=== PATIENT | female | born 1995 | race Caucasian/White ===

== ENCOUNTER → 2018-05-12 | Emergency (ER) | payer SELFPAY | END | disposition left against medical advice (07) | DX: Z53.21 Procedure and treatment not carried out due to patient leaving prior to being seen by health care provider (principal) ==

== ENCOUNTER 2018-05-22 16:34 | Emergency (ER) | payer OTHER ==
--- NOTE | 2018-05-22 16:55 | EDPHY ---
H & P Stated Complaint: chest tight / SOB---snorted cocaine last night Source: Patient Exam Limitations: No limitations - Personal History LMP (Females 10-55): 1-7 Days Ago - Medical/Surgical History Hx Asthma: No Hx Chronic Respiratory Disease: No Hx Diabetes: No Hx Cardiac Disease: No Hx Renal Disease: No Hx Cirrhosis: No Hx Alcoholism: No Hx HIV/AIDS: No Hx Splenectomy or Spleen Trauma: No Other PMH: denies - Social History Smoking Status: Never smoked Time Seen by Provider: 05/22/18 16:54 HPI/ROS: HPI: This is a 22-year-old female who presents with Chief Complaint: chest tight / SOB---snorted cocaine last night Location: Anterior chest Quality: Tightness and shortness of breath Duration: Since around 11:30 a.m. Approximately 6 hr prior to arrival Signs and Symptoms: + shortness of breath at rest, + shortness of breath on exertion, no cough, + chest pain, no palpitations, no lower extremity edema, no wheezing, no orthopnea, no paroxysmal nocturnal dyspnea, no fever, no injury/ trauma, no hemoptysis, no carpal pedal spasms Timing: Acute onset, waxes and wane Severity: Moderate Context: Patient works locally, presents with complaints of waking up this morning around 11:30 a.m. With complaints of anterior chest tightness that is nonradiating in nature accompanied by shortness of breath at rest and on exertion. Nothing makes the tightness worse or better. Patient reports that from 01/06 last night until around 7:30 a.m. This morning she was drinking alcohol excessively and snorted approximately 5-6 lines of cocaine. She reports that she does not regularly snort cocaine or use cocaine. She reports that she drank minimal fluids yesterday other than alcohol. She denies any palpitations, heart racing, lower extremity edema, wheezing, fever, upper respiratory symptoms. She has no history of lung disease. Does not have primary care provider. Last menstrual period was approximately 4 days ago and only lasted 3 days. Modifying Factors: None Comment: ROS: A comprehensive 10 system review of systems is otherwise negative aside from elements mentioned in the history of present illness. MEDICAL/SURGICAL/SOCIAL HISTORY: Medical history: Generally healthy. Does not take any regular medications. Surgical history: Denies Social history: Is self-employed and works as a nanny. Alcohol, cocaine user. CONSTITUTIONAL: Well-developed, well-nourished, nontoxic-appearing young adult white female, awake and alert, no obvious distress HEENT: Atraumatic and normocephalic, PERRL, EOMI. Nares patent; no rhinorrhea; no nasal mucosal edema. Tympanic membranes clear. Oropharynx clear, no exudate and moist pink mucosa. Airway patent. No lymphadenopathy. No meningismus. Cardiovascular: Normal S1/S2, tachycardia, regular rhythm, without murmur rub or gallop. PULMONARY/CHEST: Symmetrical and nontender. Clear to auscultation bilaterally. Good air movement. No accessory muscle usage. ABDOMEN: Soft, nondistended, nontender, no rebound, no guarding, no peritoneal signs, no masses or organomegaly. No CVAT. EXTREMITIES: 2/2 pulses, strength 5/5, no deformities, no clubbing, no cyanosis or edema. NEUROLOGICAL: no focal neuro deficits. GCS 15. SKIN: Warm and dry, no erythema. no rash. Good capillary refill. (Mayda Whitt) Constitutional: Initial Vital Signs Temperature (C) 36.4 C 05/22/18 16:38 Heart Rate 122 H 05/22/18 16:38 Respiratory Rate 16 05/22/18 16:38 Blood Pressure 124/95 H 05/22/18 16:38 O2 Sat (%) 97 05/22/18 16:38 O2 Delivery Mode Room Air Allergies/Adverse Reactions: No Known Allergies Allergy (Unverified 05/22/18 16:36) Home Medications: Medication Instructions Recorded Zoloft 25mg (*) 05/22/18 Medical Decision Making - Diagnostics EKG Interpretation: 12 lead EKG: Indication: Chest pain Rhythm: Sinus tachycardia with a rate of 106 beats per minute [place]: Normal Intervals: Normal QRS: RBBB ST segments: Normal INTERPRETATION: Early repolarization, no acute ischemic changes The 12 lead EKG was interpreted by myself and with attending (Mayda Whitt) ED Course/Re-evaluation: Vital signs reviewed and show tachycardia with a heart rate between 110-120. IV access, laboratory studies, EKG ordered Patient given 1 L normal saline EKG my initial read with attending shows sinus tachycardia with a rate of 106 beats per minute with RBBB with early repolarization; no acute ischemic changes Wells criteria is low for pulmonary embolism and do not feel the need to obtain D-dimer 173: Labs reviewed. No signs of electrolyte imbalance, acute kidney injury, , acute coronary syndrome. Potassium and magnesium within normal limits. 1739: Notified by RN that repeat heart rate is 1 of 6. Patient asking for water. Another 1 L hung equaling 2 L normal saline and will repeat EKG after the 2nd L of normal saline. 1829: Reassessed patient who reports that she feels anxious. Another 1 L totaling 3 L normal saline and IV Ativan 1 mg given. 1914: Spoke with Cardiology, Dr. Rodriguez, who reviewed EKG and agrees with right bundle branch block but no acute ischemic changes. Providers requesting 2nd troponin at 9:00 p.m.. His office will call in the morning for follow-up. 1944: Heart rate remains about 110 but patient reports that she feels better, no further chest tightness and is asking to be discharged home. I have asked that she into the hospital for observation for persistent tachycardia despite 3 L normal saline. Patient politely refuses. 2114: Notified by tech that troponin is 0.00 vital signs at discharge are heart rate of 86 with blood pressure 110/72. This patient was seen under the supervision of my secondary supervising physician. I evaluated care for this patient with my attending. Discussed this patient with Dr. Garcia who did not see the patient. (Mayda Whitt) 1200AM: I did not see or evaluate this patient while she was here in the ER. However agree with work-up and plan. (James Garcia) Differential Diagnosis: Chest pain including but not limited to myocardial ischemia, pulmonary embolus, chest wall pain, pleural inflammation and pulmonary infectious causes. (Mayda Whitt) - Data Points Laboratory Results: Laboratory Results 05/22/18 17:00 05/22/18 05/22/18 05/22/18 21:01 17:10 17:00 Sodium Potassium Chloride Carbon Dioxide Anion Gap BUN Creatinine Estimated GFR Glucose Calcium Magnesium 1.7 mg/dL mg/dL (1.6-2.3) POC Troponin I 0.01 ng/mL ng/mL 0.00 ng/mL ng/mL (0.00-0.08) (0.00-0.08) Beta HCG, Qual 05/22/18 05/22/18 17:00 17:00 Sodium 138 mEq/L mEq/L (135-145) Potassium 3.8 mEq/L mEq/L (3.5-5.2) Chloride 106 mEq/L mEq/L (97-110) Carbon Dioxide 25 mEq/l mEq/l (22-31) Anion Gap 7 mEq/L mEq/L (6-14) BUN 10 mg/dL mg/dL (7-23) Creatinine 0.6 mg/dL mg/dL (0.6-1.0) Estimated GFR > 60 Glucose 89 mg/dL mg/dL (70-100) Calcium 9.5 mg/dL mg/dL (8.5-10.4) Magnesium POC Troponin I Beta HCG, Qual NEGATIVE Medications Given: Discontinued Medications Sodium Chloride (Ns) 1,000 mls @ 0 mls/hr IV EDNOW ONE; Wide Open PRN Reason: Protocol Stop: 05/22/18 17:04 Last Admin: 05/22/18 17:04 Dose: 1,000 mls Sodium Chloride (Ns) 1,000 mls @ 0 mls/hr IV EDNOW ONE; Wide Open PRN Reason: Protocol Stop: 05/22/18 17:40 Last Admin: 05/22/18 17:43 Dose: 1,000 mls Sodium Chloride (Ns) 1,000 mls @ 0 mls/hr IV EDNOW ONE; Wide Open PRN Reason: Protocol Stop: 05/22/18 19:00 Last Admin: 05/22/18 19:02 Dose: 1,000 mls Lorazepam (Ativan Injection) 1 mg IVP EDNOW ONE Stop: 05/22/18 18:33 Last Admin: 05/22/18 18:39 Dose: 1 mg Point of Care Test Results: Chemistry 05/22/18 05/22/18 21:01 17:10 POC Troponin I 0.01 ng/mL ng/mL 0.00 ng/mL ng/mL (0.00-0.08) (0.00-0.08) Departure - Departure Disposition: Home, Routine, Self-Care Clinical Impression: Adverse effect of cocaine, initial encounter, Atypical chest pain, RBBB Condition: Good Instructions: Cocaine Abuse (ED), Noncardiac Chest Pain (ED) Additional Instructions: Please refrain from drinking alcohol excessively and using cocaine. Cocaine can cause chest discomfort. Consume a minimum of 8-10 glasses of water or electrolyte fluid replacement drinks that include Gatorade, Powerade, Pedialyte. Take Tylenol 650 mg every 4 hours and/or Ibuprofen 600 mg every 8 hours with food as needed for pain. Please establish care with primary care outpatient in the next 5-7 days. A referral has been given. Cardiology office will call you in the morning with an appointment date and time for follow-up in the next 2 days. Return at once for any worsening symptoms or concerns. Follow-Up: Please follow-up as noted above. Follow-up sooner if your condition worsens or if you develop any new problems. Call as soon as possible for an appointment. Be clear when you call for an appointment that this is an Emergency Department follow-up. Contact the Emergency Department if you have trouble arranging follow-up care. Our referrals are not based on your insurance network. When time allows, contact your insurance carrier to verify the referral physician is in your plan. If not, get a referral for an in-network consultant. Referrals: Inna Valderrama MD [Medical Doctor] - As per Instructions Baldo Rodriguez MD [Medical Doctor] - As per Instructions
[2018-05-22] MEDS ORDERED: NS 1,000 ML IV ONE ×3 (17:03→18:59)
[2018-05-22] MEDS ORDERED: LORazepam 2 MG/ML INJ IVP ONE (18:32)
[2018-05-22 21:15] VITALS: BP 107/59
--- NOTE | 2018-05-24 23:16 | CPEKG ---
Test Reason : OPEN Blood Pressure : / mmHG Vent. Rate : 104 BPM Atrial Rate : 104 BPM P-R Int : 172 ms QRS Dur : 121 ms QT Int : 356 ms P-R-T Axes : 068 201 022 degrees QTc Int : 469 ms Sinus tachycardia Probable left atrial enlargement RBBB and LPFB ST elev, probable normal early repol pattern Confirmed by Yamileth Padilla ([id number]) on 05/24/2018 11:16:41 PM Referred By: Confirmed By:Yamileth Padilla
--- NOTE | 2018-05-24 23:16 | CPEKG ---
Test Reason : OPEN Blood Pressure : / mmHG Vent. Rate : 106 BPM Atrial Rate : 108 BPM P-R Int : 163 ms QRS Dur : 123 ms QT Int : 373 ms P-R-T Axes : 054 187 017 degrees QTc Int : 496 ms Sinus tachycardia Probable left atrial enlargement RBBB and LPFB ST elev, probable normal early repol pattern Confirmed by Yamileth Padilla ([id number]) on 05/24/2018 11:16:33 PM Referred By: Confirmed By:Yamileth Padilla
== END 2018-05-22 21:21 | disposition home or self-care (01) ==
DX: R07.9 Chest pain, unspecified (principal); T40.5X5A Adverse effect of cocaine, initial encounter; I45.10 Unspecified right bundle-branch block; E86.9 Volume depletion, unspecified
CPT/HCPCS: 84484-ER; 96374; J2060

== ENCOUNTER 2018-05-23 21:43 | Emergency (ER) | payer OTHER ==
--- NOTE | 2018-05-23 21:54 | EDPHY ---
H & P Smoking Status: Never smoked Time Seen by Provider: 05/23/18 21:51 HPI/ROS: Chief complaint. Palpitations and shortness of breath HPI. A 22-year-old female seen in the emergency department last night for chest discomfort and shortness of breath after using cocaine and alcohol. Workup was normal and apparent patient was eventually discharged. She feels like her symptoms have continued. She denies fever cough. She denies cocaine or alcohol use since yesterday. She tells me she has a history of anxiety and postural tachycardia and fainting. She denies syncope today. No unusual leg pain swelling ROS 10 systems were reviewed and negative with the exception of the elements mentioned in the history of present illness (Joshua Villela) Past Medical/Surgical History: Postural tachycardia, anxiety fainting (Joshua Villela) Social History: Single nonsmoker. No cocaine or alcohol since yesterday (Joshua Villela) Physical Exam: General Appearance: Alert well-developed female mild distress vital signs are stable Eyes: Pupils equal and round no pallor or injection. ENT, Mouth: Mucous membranes are moist. Respiratory: There are no retractions, lungs are clear to auscultation. Cardiovascular: Regular rate and rhythm. Gastrointestinal: Abdomen is soft and nontender, no masses, bowel sounds normal. Neurological: Awake and alert, sensory and motor exams grossly normal. Skin: Warm and dry, no rashes. Musculoskeletal: Neck is supple nontender. Extremities symmetrical, full range of motion. Psychiatric: Patient is oriented X 3, there is no agitation. (Joshua Villela) Constitutional: Initial Vital Signs Temperature (C) 36.7 C 05/23/18 21:48 Heart Rate 93 05/23/18 21:48 Respiratory Rate 17 05/23/18 21:48 Blood Pressure 126/84 H 05/23/18 21:48 O2 Sat (%) 98 05/23/18 21:48 O2 Delivery Mode Room Air Allergies/Adverse Reactions: No Known Allergies Allergy (Unverified 05/23/18 21:47) Home Medications: Medication Instructions Recorded Zoloft 25mg (*) 05/22/18 Medical Decision Making - Diagnostics EKG Interpretation: EKG interpreted by me shows normal sinus rhythm normal interval and axis. QRS is normal there is no significant ST elevation or depression. There is no arrhythmia. The rate is 89 (Joshua Villela) Imaging Results: One-view chest x-ray interpreted by me is normal (Joshua Villela) ED Course/Re-evaluation: 0156: Patient re-evaluated this time resting comfortably no acute distress denies chest pain or shortness of breath she has been here for 4 hr and states that she is ready to go home and feels much better. She reports she felt very anxious earlier tonight now much better. No chest pain no shortness of breath heart rate is currently 79 pulse ox 97% on room air. Patient is CT angiogram of the chest for an elevated D-dimer the CT angiogram did not reveal any evidence of pulmonary embolism called to me by Dr. Mckenna Plan for patient to go home. She feels better Discussed return precautions with her She understands return emergency room she develops worsening symptoms includes shortness of breath, chest pain, syncope, not doing well. Do recommend she follows up with Cardiology on outpatient basis. Slightly elevated D-dimer on labs reviewed Negative troponin. Electrolytes are appropriate. (James Garcia) Differential Diagnosis: I considered pulmonary embolus, acute coronary syndrome, dysrhythmias. Symptoms have been present since using alcohol and cocaine. (Joshua Villela) Care Turn Over: care to Dr. Dewitt at 2300 (Joshua Villela) - Data Points Laboratory Results: Laboratory Results 05/23/18 22:15 05/23/18 22:15 Medications Given: Discontinued Medications Sodium Chloride (Ns) 1,000 mls @ 0 mls/hr IV EDNOW ONE; Wide Open PRN Reason: Protocol Stop: 05/23/18 22:04 Last Admin: 05/23/18 22:22 Dose: 1,000 mls Sodium Chloride (Ns) 1,000 mls @ 0 mls/hr IV ONCE ONE; Wide Open PRN Reason: Protocol Stop: 05/23/18 23:11 Last Admin: 05/23/18 23:55 Dose: 1,000 mls Point of Care Test Results: Chemistry 05/23/18 22:22 POC Troponin I 0.00 ng/mL ng/mL (0.00-0.08) Departure - Departure Disposition: Home, Routine, Self-Care Clinical Impression: Anxiety Condition: Good Instructions: Heart Palpitations (ED), Anxiety (ED) Additional Instructions: 1. Follow up with Cardiology 2. Return emergency room if worsening symptoms Referrals: NONE *PRIMARY CARE P,. [Primary Care Provider] - As per Instructions Baldo Rodriguez MD [Medical Doctor] - As per Instructions
[2018-05-23] MEDS ORDERED: NS 1,000 ML IV ONE ×2 (22:03→23:10)
[2018-05-23 22:31] LABS: PLATELET COUNT 229 10^3/uL (150-400)
--- NOTE | 2018-05-23 22:38 | CPEKG ---
Test Reason : OPEN Blood Pressure : / mmHG Vent. Rate : 089 BPM Atrial Rate : 087 BPM P-R Int : 161 ms QRS Dur : 072 ms QT Int : 346 ms P-R-T Axes : 056 022 044 degrees QTc Int : 421 ms Sinus rhythm Confirmed by Joshua Villela ([id number]) on 05/23/2018 10:38:35 PM Referred By: Confirmed By:Joshua Villela
[2018-05-23] MEDS ORDERED: IOPAMIDOL (ISOVUE 370) 100 ML BTL IV ONE (23:13)
[2018-05-24 02:18] VITALS: BP 119/75
== END 2018-05-24 02:20 | disposition home or self-care (01) ==
DX: R00.2 Palpitations (principal); F41.9 Anxiety disorder, unspecified; E86.9 Volume depletion, unspecified
CPT/HCPCS: 84484-ER; Q9967

== ENCOUNTER 2018-06-30 19:34 | Emergency (ER) | payer OTHER ==
--- NOTE | 2018-06-30 19:45 | EDPHY ---
H & P Stated Complaint: Depression, anxiety, denies SI/HI Source: Patient Exam Limitations: No limitations - Personal History LMP (Females 10-55): 15-21 Days Ago Current Tetanus Diphtheria and Acellular Pertussis (TDAP): Yes - Medical/Surgical History Hx Asthma: No Hx Chronic Respiratory Disease: No Hx Diabetes: No Hx Cardiac Disease: No Hx Renal Disease: No Hx Cirrhosis: No Hx Alcoholism: No Hx HIV/AIDS: No Hx Splenectomy or Spleen Trauma: No Other PMH: Depression - Social History Smoking Status: Never smoked Time Seen by Provider: 06/30/18 19:42 HPI/ROS: HPI: This is a 22-year-old female who presents with Chief Complaint: Depression, anxiety Location: psych Quality: Worsening depression and anxiety Duration: 1-2 months Signs and Symptoms: no auditory hallucinations, no visual hallucinations, no suicidal ideation with a plan, no homicidal ideation, no paranoia Timing: Acute on chronic Severity: Moderate Context: Patient recently moved to the area from [place] approximately 2 months ago presents with worsening depression anxiety over the last 1-2 months. Patient reports that she was taking Zoloft until approximately 4-6 weeks ago. She is unsure of the dose. She reports that since stopping the Zoloft she cries uncontrollably several times per day. Has not worked or been able to work since she arrived in [place], is withdrawn from family and friends, does not participate in normal activities of daily living. Patient reports that she does not want to end her life or harm other people. She reports that she does not have any mental health providers or support in the area. She reports that she called several psychiatrist and the weight is approximately 3 months. Modifying Factors: None Comment: ROS: A comprehensive 10 system review of systems is otherwise negative aside from elements mentioned in the history of present illness. MEDICAL/SURGICAL/SOCIAL HISTORY: Medical history: Generally healthy. Does not take any regular medications. LMP 2-3 weeks ago. Surgical history: Denies Social history: Social alcohol use. Denies tobacco or drug use. Family history noncontributory. CONSTITUTIONAL: Flat affect, tidy, cooperative, young adult white female, awake and alert, no obvious distress HEENT: Atraumatic and normocephalic, PERRL, EOMI. Nares patent; no rhinorrhea; no nasal mucosal edema. Tympanic membranes clear. Oropharynx clear, no exudate and moist pink mucosa. Airway patent. No lymphadenopathy. No meningismus. Cardiovascular: Normal S1/S2, regular rate, regular rhythm, without murmur rub or gallop. PULMONARY/CHEST: Symmetrical and nontender. Clear to auscultation bilaterally. Good air movement. No accessory muscle usage. ABDOMEN: Soft, nondistended, nontender, no rebound, no guarding, no peritoneal signs, no masses or organomegaly. No CVAT. PELVIC: Politely declined EXTREMITIES: 2/2 pulses, strength 5/5, no deformities, no clubbing, no cyanosis or edema. NEUROLOGICAL: no focal neuro deficits. GCS 15. SKIN: Warm and dry, no erythema. no rash. Good capillary refill. PSYCH: Fair eye contact, no flight of ideas, organized thought process, good insight and judgment, no auditory hallucinations, no visual hallucinations, no suicidal ideation with a plan, no homicidal ideation, no paranoia (Mayda Whitt) Constitutional: Initial Vital Signs Temperature (C) 36.8 C 06/30/18 19:37 Heart Rate 92 06/30/18 19:37 Respiratory Rate 17 06/30/18 19:37 Blood Pressure 100/68 06/30/18 19:37 O2 Sat (%) 95 06/30/18 19:37 O2 Delivery Mode Room Air Allergies/Adverse Reactions: No Known Allergies Allergy (Unverified 06/30/18 19:36) Home Medications: Medication Instructions Recorded NK [No Known Home Meds] 06/30/18 Medical Decision Making ED Course/Re-evaluation: Vital signs reviewed and stable upon arrival. Does not meet hold or [facility] criteria. 2000: Labs and urine drug screen ordered. Voluntary mental health evaluation 2100: Laboratory studies reviewed and grossly unremarkable. Urine drug screen negative. Medically clear for mental health evaluation. 2225: [facility] recommends discharge home with outpatient follow-up with [facility]. This patient was seen under the supervision of my secondary supervising physician. I evaluated care for this patient independently. Discussed this patient with Dr. Arcos who did not see the patient. (Mayda Whitt) PHYSICIAN DOCUMENTATION: The patient was evaluated and managed by the Physician Pusher Runner. My co- signature indicates that I have reviewed this chart and I agree with the findings and plan of care as documented. I am the secondary supervising physician. (Fransisca Arcos) Differential Diagnosis: Differential diagnosis includes but is not limited to major depression, anxiety disorder, schizophrenia, bipolar disorder, intoxicant use, suicidal ideation, psychosis, aneesh. (Mayda Whitt) - Data Points Laboratory Results: Laboratory Results 06/30/18 20:00 06/30/18 20:00 06/30/18 06/30/18 06/30/18 20:00 20:00 20:00 WBC RBC Hgb Hct MCV MCH MCHC RDW Plt Count MPV Neut % (Auto) Lymph % (Auto) [place] % (Auto) Eos % (Auto) Baso % (Auto) Nucleat RBC Rel Count Absolute Neuts (auto) Absolute Lymphs (auto) Absolute Monos (auto) Absolute Eos (auto) Absolute Basos (auto) Absolute Nucleated RBC Immature Gran % Immature Gran # Sodium 134 mEq/L L mEq/L (135-145) Potassium 3.8 mEq/L mEq/L (3.5-5.2) Chloride 102 mEq/L mEq/L (97-110) Carbon Dioxide 26 mEq/l mEq/l (22-31) Anion Gap 6 mEq/L mEq/L (6-14) BUN 15 mg/dL mg/dL (7-23) Creatinine 0.7 mg/dL mg/dL (0.6-1.0) Estimated GFR > 60 Glucose 84 mg/dL mg/dL (70-100) Calcium 9.6 mg/dL mg/dL (8.5-10.4) Beta HCG, Qual NEGATIVE Urine Opiates Screen NEGATIVE (NEGATIVE) Urine Barbiturates NEGATIVE (NEGATIVE) Ur Phencyclidine Scrn NEGATIVE (NEGATIVE) Ur Amphetamine Screen NEGATIVE (NEGATIVE) U Benzodiazepines Scrn NEGATIVE (NEGATIVE) Urine Cocaine Screen NEGATIVE (NEGATIVE) U Marijuana (THC) Screen NEGATIVE (NEGATIVE) Ethyl Alcohol < 10 mg/dL mg/dL (0-10) 06/30/18 20:00 WBC 7.44 10^3/uL 10^3/uL (3.80-9.50) RBC 4.08 10^6/uL L 10^6/uL (4.18-5.33) Hgb 13.5 g/dL g/dL (12.6-16.3) Hct 39.4 % % (38.0-47.0) MCV 96.6 fL fL (81.5-99.8) MCH 33.1 pg pg (27.9-34.1) MCHC 34.3 g/dL g/dL (32.4-36.7) RDW 11.9 % % (11.5-15.2) Plt Count 226 10^3/uL 10^3/uL (150-400) MPV 9.3 fL fL (8.7-11.7) Neut % (Auto) 55.0 % % (39.3-74.2) Lymph % (Auto) 30.1 % % (15.0-45.0) [place] % (Auto) 8.5 % % (4.5-13.0) Eos % (Auto) 5.8 % % (0.6-7.6) Baso % (Auto) 0.5 % % (0.3-1.7) Nucleat RBC Rel Count 0.0 % % (0.0-0.2) Absolute Neuts (auto) 4.09 10^3/uL 10^3/uL (1.70-6.50) Absolute Lymphs (auto) 2.24 10^3/uL 10^3/uL (1.00-3.00) Absolute Monos (auto) 0.63 10^3/uL 10^3/uL (0.30-0.80) Absolute Eos (auto) 0.43 10^3/uL H 10^3/uL (0.03-0.40) Absolute Basos (auto) 0.04 10^3/uL 10^3/uL (0.02-0.10) Absolute Nucleated RBC 0.00 10^3/uL 10^3/uL (0-0.01) Immature Gran % 0.1 % % (0.0-1.1) Immature Gran # 0.01 10^3/uL 10^3/uL (0.00-0.10) Sodium Potassium Chloride Carbon Dioxide Anion Gap BUN Creatinine Estimated GFR Glucose Calcium Beta HCG, Qual Urine Opiates Screen Urine Barbiturates Ur Phencyclidine Scrn Ur Amphetamine Screen U Benzodiazepines Scrn Urine Cocaine Screen U Marijuana (THC) Screen Ethyl Alcohol Departure - Departure Disposition: Home, Routine, Self-Care Clinical Impression: Depression with anxiety Condition: Good Instructions: Depression (ED), Anxiety (ED) Referrals: [facility] [Clinic] - 5-7 days, call for appt.
[2018-06-30 20:30] LABS: PLATELET COUNT 226 10^3/uL (150-400)
[2018-06-30 22:45] VITALS: BP 106/69
== END 2018-06-30 22:40 | disposition home or self-care (01) ==
DX: F32.9 Major depressive disorder, single episode, unspecified (principal); F41.9 Anxiety disorder, unspecified
CPT/HCPCS: 80305; G0480